=== PATIENT | female | born 1990 | race Caucasian/White ===

== ENCOUNTER 2017-03-26 18:41 | Emergency (ER) | payer OTHER ==
[~2017-03-26] VITALS: Ht 152.4 cm; Wt 98.5 kg
[2017-03-26 19:01] VITALS: Ht 152.4 cm; Wt 98.5 kg
[2017-03-26 21:28] VITALS: BP 132/85
== END 2017-03-26 21:28 | disposition home or self-care (01) ==
LOC: ED 18:41
DX: B34.9 Viral infection, unspecified (principal)
CPT/HCPCS: 87804